=== PATIENT | female | born 1965 | race Caucasian/White ===

== ENCOUNTER → 2016-11-25 | Outpatient (CLI) | payer OTHER, BC | LOC: RAD 09:07 | PROVIDERS: ATTEND Internal Medicine | DX: M54.5 Low back pain (principal) | CPT/HCPCS: 72110 ==

== ENCOUNTER → 2017-01-13 | Outpatient (CLI) | payer OTHER, BC ==
[~2017-01-13] MED LIST: AMLO10TA4 PO; BENZ-22 PO; CPR500T PO; CRV6.25T PO; NO HOME MEDICATIONS; PRED20TA PO
--- NOTE | 2017-01-13 09:54 | Diagnostic Imaging Report ---
CLINICAL INDICATION: Patient with right L5 radicular symptoms and pain. Patient has no history of surgery. Patient back popped while lifting about one and half months ago. EXAM: MRI of the lumbar spine performed without IV contrast. Sequences include sagittal T2, sagittal T1, sagittal T2 fat-sat, and axial T2. COMPARISON: CT scan of the lumbar spine without IV contrast dated 09/07/2013. FINDINGS: There is no acute lumbar spine fracture. There is small amount of mild Modic type II degenerative signal changes anteriorly at the L1-L2 level and subtle Modic type I degenerative signal changes anteriorly at the L5-S1 level. Remainder of the lumbar vertebra signal is unremarkable. The distal thoracic spinal cord, conus medullaris tip, and cauda equina nerve roots show no significant abnormality. The conus medullaris tip is not imaged on the axial T2 sequence, but the conus medullaris tip is not seen below the L1-L2 intervertebral body level. Otherwise, the visualized portions of the distal spinal cord, conus medullaris, and cauda equina have normal anatomic appearance. There is no significant paraspinal soft tissue abnormality. L1-L2: Again seen diffuse disc bulge with mild loss of intervertebral disc height and chronic concave endplate deformities. There is mild central canal narrowing and mild left neural foramen narrowing which has not significantly changed in the interim. Stable chronic calcification/fragment seen anterior to the intervertebral region. L2-L3: There is progression of a diffuse disc bulge with development of a small broad far left lateral and left subarticular disc herniation. There is associated ycbg-pr-zbziogcz left neural foramen narrowing. There is mbgf-vg-bigujlko bilateral facet arthropathy (left side more than the right). There is mild to moderate central canal narrowing which has progressed. L3-L4: Again seen subtle grade 1 retrolisthesis of L3 on L4. There is slight progression of gblh-ii-roavjokr bilateral facet arthropathy ligament flavum buckling. There is dyza-ih-lserlfzv central canal narrowing and no significant neural foramen narrowing. L4-L5: There is moderate bilateral facet arthropathy which has slightly progressed. There is no significant central spinal canal or neural foramen narrowing. L5-S1: There is a diffuse disc bulge, moderate loss of intervertebral disc height and xqzy-iu-pwlfywug bilateral facet arthropathy. There is no significant central spinal canal or neural foramen narrowing. IMPRESSION: 1: Interval progression of multilevel lumbar spine degenerative disc disease. There is development of rklz-bv-dmyuhbtz central canal narrowing at the L2-L3 and L3-L4 level due to diffuse disc bulges. 2: There is development of a small left subarticular far left lateral L2-L3 disc herniation, which causes mild to moderate left neural foramen narrowing. 3: Stable subtle grade 1 retrolisthesis of L3 on L4. Dictated by: Dictated on workstation # [id number]
== END ==
LOC: RAD 07:42
PROVIDERS: ATTEND Internal Medicine
DX: M54.5 Low back pain (principal); M51.36 Other intervertebral disc degeneration, lumbar region
CPT/HCPCS: 72148

== ENCOUNTER 2017-01-26 12:00 | Outpatient (RCR) | payer OTHER, BC ==
--- NOTE | 2016-12-13 11:33 | PT/OT/ST INITIAL EVALUATION ---
Department of Health and Human Services Form Approved [facility] Care Financing Administration OMB No. [id number] PLAN OF CARE/ASSESSMENT FOR OUTPATIENT REHABILITATION (Complete for Initial Claims Only) 1. PATIENT'S NAME Darling Healy 2. ACC # [id number] 3. HICN NA 4. PROVIDER NO. [id number] 5. TYPE: PT 6. PRIOR HOSPITALIZATION NA 7. PRIMARY DX Low back pain ICD-10 code M54.5 with right-sided radicular symptoms 8. SECONDARY DX 9. ONSET DATE Approximately 2 weeks ago 10. REFERRAL DATE 11/29/2016 11. SOC. DATE 12/06/2016 12. TIME OF EVAL 15:12 to 16:[address] Cammy High 13. CHARGES/UNITS Evaluation 05390 [place] 9[address]99 manual therapy [place] [address] therapeutic exercise 14. G CODES NA 15. PRIOR LEVEL OF FUNCTION; PERTINENT HISTORY (Prior therapy results, reason for referral.) S: Prior to therapy, the patient consented to today's evaluation and treatment. The patient is a 51-year-old female referred by Dr. High to address low back pain with right lower extremity radicular symptoms. The patient's initial injury happened approximately 2 weeks ago when she bent over at work, assisting a client with bathing and felt a pop in her low back. The patient has had low back pain with right lower extremity radicular symptoms to her foot since that time. Prior level of function: The patient works at [employer]. 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 The patient does work up to 6 days a week. The patient was able to sleep throughout the night without difficulty. Current level of function: Since the injury, the patient has a 10-pound weight restriction and instructions to not perform stooping or bending tasks. The patient's sitting tolerance is limited secondary to her pain as well as being unable to sleep for greater than 4 hours at a time without having to wake up and change positions. Therapy History: No therapy for this issue. Pain level: Current pain level is 8/10 and described as a burning sensation in the lumbar spine and down into the right foot laterally and posteriorly along the limbs. Aggravating factors: The pain is aggravated by sleeping or sitting for long periods of time. Relieving factors: It is relieved by doing stretches provided by the physician and using a heating pad. Diagnostic testing: The patient has undergone x-rays, which she reports shows degenerative disk disease. Past medical history: Includes hypertension and appendectomy. The patient denies any prior back injuries. Current medications: The patient was taking Aleve for pain, but caused her stomach to become upset, therefore, she is now taking Tylenol twice a day. ALLERGIES: The patient does report medicinal allergies including Valium, codeine, and Demerol. Personal health rating: She reports her overall health rating as good. Activity level: The patient did not provide any activity level rating. Patient's Goal: The patient's goal for physical therapy is to get back to normal function without pain. 16. INITIAL ASSESSMENT/SAFETY PRECAUTIONS/MEDICAL COMPLICATIONS (Level of function at start of care. Be specific, use objective measures, list problems.) O: APPEARANCE AND OBSERVATION: Observation of the patient's posture reveals increased time needed for ovd-zz-bcaqx transition with guarding to the right side. The patient has increased lumbar lordosis. Neutral iliac crest and PSIS alignment. PALPATION: The patient has tenderness to palpation of the bilateral lumbar paraspinals and the right SI joint. SPECIAL TESTS: The patient scores a 14/50 on the modified Oswestry pain questionnaire. Positive slump test on the right for increased nerve tension and back pain. Positive straight leg raise test on the right for increased nerve tension and back pain. Negative lumbar shear test for increased instability in the low back. Negative quadrants test for any facet impingement. RANGE OF MOTION/FLEXIBILITY: The patient's hamstrings are limited by 25 degrees bilaterally when assessed in supine. The patient demonstrates lumbar flexion and extension to be limited by approximately 50%. The patient is able to complete lumbar side bending without restriction. STRENGTH: Right hip flexion 5/5 and painful. Left 5/5. Right hip abduction 4+/5 and painful. Left 4+/5. Knee flexion and extension are 5/5 bilaterally with pain on the right. Ankle dorsiflexion 4+/5 on the right, left 4+/5. TODAY'S TREATMENT: Today's treatment consisted of educating the patient on the findings of the evaluation and recommended treatment plan. The physical therapist initiated manual therapy including deep tissue mobilizations and muscle rolling to decrease tightness along the lumbar paraspinals, greatest on the iliac crest. The physical therapist then initiated general stretching with instruction to not over stretch or stretch into pain and the patient was provided these exercises on a home exercise program. The physical therapist also advised the patient to use a lumbar towel when riding in the car to improve positioning of her low back and provide support, as well as use of heat and ice as needed to address pain and inflammation of the low back. 17. INITIAL POC: (Specify procedures, modalities, short and detention goals) A: The patient presents to physical therapy with low back pain and right lower extremity radicular symptoms caused by sustaining injury during work. The patient has significant muscle tightness in the lumbar spine, as well as significant range of motion limitations noted in the lumbar spine and hamstrings. Minimal strength deficits noted at this time. INFORMED CONSENT: The diagnosis, prognosis, treatment plan, risks and expected outcomes were discussed with this patient and she is agreeable to today's established plan of care. SHORT TERM GOALS X3 WEEKS: 1. The patient will report independence and compliance with home exercise program. 2. The patient will be able to complete proper body mechanics with lifting up to 10 pounds. 3. The patient will report a 50% decrease in low back and right lower extremity frequency and intensity of pain. 4. The patient will score less than or equal to 8/50 on the Modified Oswestry pain questionnaire. 5. The patient will regain 5/5 strength in bilateral hip abduction, in addition to demonstrating proper transverse abdominis contraction for greater than or equal to 30 seconds. P: Plan to see this patient 2 times a week for 3 weeks in order to address low back pain and right lower extremity radicular symptoms. The patient does have impaired muscle flexibility and range of motion throughout the lumbar spine, as well as mild strength impairment in the hip musculature. The treatment will include modalities as needed to address pain and muscle tightness. Manual therapy will be utilized to decrease muscle tightness and improve lumbar spine mobility. Therapeutic exercise will emphasize gentle lower extremity stretching improving lower extremity range of motion and lumbar spine range of motion, and progressive strengthening of the trunk and lower extremities. Neuromuscular and functional training will be utilized as needed. The patient was provided with a home exercise program and this will be progressed as needed. Thank you for the referral of this patient. 18. FREQUENCY 2 times a week 19. DURATION 3 weeks 20. FUNCTIONAL LEVEL (End of claim period) 21. PHYSICIAN SIGNATURE ? ON FILE OR ENTER HERE: 22. DATE: I certify the need for these services furnished under this plan of care and if for partial hospitalization. 23. CERTIFICATION FROM THROUGH FORM [id number]
== END 2017-02-06 12:33 | disposition home or self-care (01) ==
LOC: PT 12:00
PROVIDERS: ATTEND Internal Medicine
DX: M54.5 Low back pain (principal)